=== PATIENT | female | born 1960 | race Caucasian/White ===

== ENCOUNTER 2019-09-15 15:01 | Inpatient (IN) | payer BC, MEDICAID ==
[2019-09-15 18:06] LABS: Glucose,Whole Blood 180 mg/dL (75-99)
[2019-09-15] MEDS ORDERED: ACETAMINOPHEN TAB 325 MG TAB PO PRN (19:33)
[2019-09-15 19:43] LABS: Basophils % (A) 0 %; Eosinophils % (A) 0 %; HCT 45.5 % (34.0-46.0); HGB 14.7 gm/dL (11.4-16.0); Lymphocytes # (A) 1.1 k/uL (1.0-4.8); Lymphocytes % (A) 10 %; MCH 28.3 pg (25.0-35.0); MCHC 32.4 g/dL (31.0-37.0); MCV 87.2 fL (80.0-100.0); Mean Platelet Volume 7.7; Monocytes # (A) 0.1 k/uL (0-1.0); Monocytes % (A) 1 %; Neutrophils % (A) 88 %; Platelet Count 276 k/uL (150-450); RBC 5.21 m/uL (3.80-5.40); RDW 13.4 % (11.5-15.5); WBC 10.3 k/uL (3.8-10.6)
[2019-09-15 20:00] LABS: ALT 60 U/L (4-34); AST 43 U/L (14-36); African American GFR (CKD) >90 (>60 ml/min/1.73 sqM); Albumin 4.7 g/dL (3.5-5.0); Alkaline Phosphatase 159 U/L (38-126); Anion Gap 12 mmol/L; Blood Urea Nitrogen 18 mg/dL (7-17); Calcium 9.6 mg/dL (8.4-10.2); Carbon Dioxide 25 mmol/L (22-30); Chloride 97 mmol/L (98-107); Creatine Kinase 132 U/L (30-135); Glucose 196 mg/dL (74-99); LDH 466 U/L (313-618); Non-African American GFR(CKD) >90 (>60 ml/min/1.73 sqM); Potassium 4.3 mmol/L (3.5-5.1); Sodium 134 mmol/L (137-145); Total Bilirubin 0.4 mg/dL (0.2-1.3); Total Protein 7.9 g/dL (6.3-8.2)
[2019-09-15 20:02] LABS: Glucose,Whole Blood 200 mg/dL (75-99)
[2019-09-15 20:09] LABS: D-Dimer 0.53 mg/L FEU (<0.60); Partial Thromboplastin Time 23.6 sec (22.0-30.0); Prothrombin Time 10.4 sec (9.0-12.0)
[2019-09-15] MEDS: MONTELUKAST 10 MG TAB PO SCH (20:12)
[2019-09-15] MEDS: traZODone HCL 50 MG TAB PO SCH (20:12)
[2019-09-15] MEDS: PRAVASTATIN SODIUM 40 MG TAB PO SCH (20:12)
[2019-09-15] MEDS: ASPIRIN 81 MG PO SCH (20:12)
[2019-09-15] MEDS: INSULIN ASPART (NovoLOG) 100 UNIT/ML VIAL SQ SCH (20:13)
[2019-09-15] MEDS: ONDANSETRON 4 MG/2 ML VIAL IVP PRN (20:20)
--- NOTE | 2019-09-16 01:08 | P.HPIM ---
History of Present Illness H&P Date: 09/15/19 Chief Complaint: cough , SOB I was wearing full PPE during this encounter including N95 mask, face shield, double gloves, gown, and head cover. patient had a surgical mask on during my entire interview. i maintained 6 feet distance with the patient who verbalized understanding about these precautionary measures. except for during my physical exam where i had to be close to the patient. 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 She has been having symptoms since the weekend of worsening coughing and shortness of breath. She normally doesn't get any asthma exacerbations however she noticed that she's getting wheezy at home requiring frequent breathing treatment with rescue inhaler for which patient went to the hospital for evaluation she was tested for Covid 19. Patient reports symptoms of headache loss of smell and taste sensation generalized body aches and pleuritic chest pain with coughing. She admits to wheezing at home. Otherwise denies any fevers or chills denies any nausea vomiting or diarrhea. Patient is frequently coughing mainly dry cough. Patient otherwise denies any sick contact or recent traveling she has observing social distancing and self-isolation home when she is not working. Her has prostate cancer and he is currently asymptomatic. Patient blood work reviewed and is unremarkable. In addition has non of the known typical picture that we see with Covid 19 Chest x-ray showed some bilateral infiltrates which was done at another [facility] facility. Currently patient is coughing, however denies any respiratory distress she is on 2 L nasal cannula and oxygen saturations 99%. Patient kept in contact and droplet precautions until Covid 19 results are back Review of Systems Pertinent positives as noted in HPI. All other systems were reviewed and are negative Past Medical History Past Medical History: Asthma, Diabetes Mellitus, Hypertension, Myocardial Infarction ([place]) Last Myocardial Infarction Date:: 2009 History of Any Multi-Drug Resistant Organisms: None Reported Past Surgical History: Cholecystectomy, Heart Catheterization Past Anesthesia/Blood Transfusion Reactions: No Reported Reaction Past Psychological History: Depression Smoking Status: Former smoker - Past Family History Family Family Medical History: Coronary Artery Disease (CAD) Additional Family Medical History / Comment(s): with prostate cancer Medications and Allergies Home Medications Medication Instructions Recorded Confirmed Type Aspirin EC [Ecotrin Low Dose] 81 mg PO Q48H 09/15/19 09/15/19 History Calcium/Vitamin D3(Unknown Dose) 1 tab PO BID 09/15/19 09/15/19 History Cholecalciferol [Vitamin D3 (25 1,000 unit PO DAILY 09/15/19 09/15/19 History Mcg = 1000 Iu)] Lisinopril [Zestril] 2.5 mg PO DAILY 09/15/19 09/15/19 History Metoprolol Succinate (ER) [Toprol 50 mg PO DAILY 09/15/19 09/15/19 History Xl] Montelukast [Singulair] 10 mg PO HS 09/15/19 09/15/19 History Multivitamins, Thera [Multivitamin 1 tab PO DAILY 09/15/19 09/15/19 History (formulary)] Nitroglycerin Sl Tabs [Nitrostat] 0.4 mg SUBLINGUAL Q5M PRN 09/15/19 09/15/19 History Polyethylene Glycol 3350 [Miralax] 17 gm PO DAILY 09/15/19 09/15/19 History Pravastatin Sodium [Pravachol] 40 mg PO HS 09/15/19 09/15/19 History SUMAtriptan SUCCINATE [Imitrex] 100 mg PO BID PRN 09/15/19 09/15/19 History Venlafaxine HCl [Effexor XR] 150 mg PO DAILY 09/15/19 09/15/19 History metFORMIN HCL [Glucophage] 1,000 mg PO BID 09/15/19 09/15/19 History traZODone HCL 50 mg PO HS 09/15/19 09/15/19 History Allergies Allergy/AdvReac Type Severity Reaction Status Date / Time cephalexin [From Keflex] Allergy Itching Verified 09/15/19 18:20 Sulfa (Sulfonamide Allergy Itching Verified 09/15/19 18:20 Antibiotics) codeine AdvReac PASSED OUT Verified 09/15/19 18:20 Physical Exam Vitals: Vital Signs Temp Pulse Resp BP Pulse Ox 09/15/19 17:51 97.9 F 79 18 135/85 99 Intake and Output 09/15/19 09/15/19 09/15/19 06:59 14:59 22:59 Other: Weight 101.605 kg Constitutional: No acute distress, conversant, pleasant, on 2 L nasal cannula Eyes: Anicteric sclerae, moist conjunctiva, Pupils equal round reactive to light ENMT: NC/AT Oropharynx was not examined due to possible coated infection to minimize risk of spread of the disease Neck: Supple, FROM, no masses, or JVD Lungs: Clear to auscultation, no wheezing rhonchi or rales Clear to percussion Normal respiratory effort, no accessory muscle use Cardiovascular: Heart regular in rate and rhythm, No murmurs, gallops, or rubs No peripheral edema Abdominal: Soft Nontender, no guarding, rebound or rigidity Abdomen moving with respiration Normoactive bowel sounds No hepatomegaly, No splenomegaly No palpable mass No abdominal wall hernia noted Skin: Normal temperature, tone, texture, turgor No induration No subcutaneous nodules No rash, lesions No ulcers Extremities: No digital cyanosis No clubbing Pedal pulses intact and symmetrical Radial pulses intact and symmetrical No calf tenderness Psychiatric: Alert and oriented to person, place and time Appropriate affect fair judgement Neuro Muscles Strength 5/5 in all 4 extremities Sensation to light touch grossly present throughout Cranial nerves II-XII grossly intact No focal sensory deficits Lymphatics: no palpable cervical or supraclavicular , or inguinal lymph nodes Results CBC & Chem 7: 09/15/19 19:22 09/15/19 19:22 Labs: Abnormal Lab Results - Last 24 Hours (Table) 09/15/19 Range/Units 18:01 POC Glucose (mg/dL) 180 H (75-99) mg/dL Thrombosis Risk Factor Assmnt - Choose All That Apply Each Factor Represents 1 point: Age 41-60 years Thrombosis Risk Factor Assessment Total Risk Factor Score: 1 Thrombosis Risk Factor Assessment Level: Low Risk Assessment and Plan Assessment: 59-year-old female with hypertension controlled with medications, diabetes mellitus on metformin, mild intermittent asthma, history of CAD pain years ago Patient was transferred from another [facility] to us under the [facility] load program Patient admitted for acute asthma exacerbation with possible underlying covid 19 infection anticipated length of stay more than 2 midnights Acute asthma excessive urination with possible underlying viral pneumonia Atypical pneumonia viral versus bacterial Diabetes mellitus Hypertension History of Mild intermittent asthma History of CAD 10 years ago Plan Supplemental oxygen as needed keep oxygen saturation above 92% Blood work reviewed unremarkable. Also lacks the typical picture that we see with Covid 19 infections. Covid 19 testing pending Oral prednisone for acute asthma exacerbation Albuterol inhaler every 2 hours when necessary Start patient on doxycycline for anti-inflammatory and possible underlying atypical pneumonia Supportive care Insulin sliding scale for diabetes Resume home medications Symptomatic control of coughing Check lactic acid. Lactic acid was reported to be at 3.9 at the other facility patient received IV fluids at the original hospital before transfer Monitor vital signs CODE STATUS: Full code DVT prophylaxis: Heparin subcu 3 times a day Discussed with: Patient, ER, RN Anticipated length of stay more than [address]: Home A total of 60 minutes was spent on the care of this complex patient more than 50% of the time was spent in counseling and care coordination.
[2019-09-16 01:13] LABS: Ferritin 143.8 ng/mL (10.0-291.0)
[2019-09-16] MEDS: DOXYCYCLINE 100 MG CAP PO SCH ×3 (01:52→21:01)
[2019-09-16] MEDS ORDERED: HYDROXYCHLOROQUINE SULFATE 200 MG TAB PO ONE (02:00)
[2019-09-16] MEDS: SUMAtriptan SUCCINATE 50 MG TAB PO PRN ×2 (05:54→16:10)
[2019-09-16 06:47] LABS: Glucose,Whole Blood 132 mg/dL (75-99)
[2019-09-16] MEDS: ONDANSETRON 4 MG/2 ML VIAL IVP PRN ×2 (07:13→14:52)
[2019-09-16] MEDS: HEPARIN SODIUM,PORCINE 5,000 UNIT/ML 1 ML VIAL SQ SCH ×3 (07:35→23:47)
[2019-09-16] MEDS: VENLAFAXINE HCL ER 150 MG CAP PO SCH (07:35)
[2019-09-16] MEDS: predniSONE 20 MG TAB PO SCH (07:35)
[2019-09-16] MEDS: INSULIN ASPART (NovoLOG) 100 UNIT/ML VIAL SQ SCH ×4 (07:35→21:01)
[2019-09-16] MEDS: METOPROLOL SUCCINATE (ER) 50 MG TAB.ER.24H PO SCH (07:35)
[2019-09-16] MEDS: LISINOPRIL 2.5 MG TAB PO SCH (07:35)
[2019-09-16] MEDS: HYDROXYCHLOROQUINE SULFATE 200 MG TAB PO SCH ×2 (09:03→21:24)
[2019-09-16] MEDS: ALBUTEROL HFA INHALER INHALATION PRN ×2 (09:33→20:50)
[2019-09-16] MEDS: SYMBICORT 160-4.5 MCG INHALER INHALATION SCH ×2 (09:33→20:50)
--- NOTE | 2019-09-16 10:55 | XR ---
EXAMINATION TYPE: XR chest 1V portable DATE OF EXAM: 09/16/2019 COMPARISON: Outside imaging dated 09/15/2019 HISTORY: Follow-up for pneumonia TECHNIQUE: Single frontal view of the chest is obtained. FINDINGS: There is no focal air space opacity, pleural effusion, or pneumothorax seen. The cardiac silhouette size is within normal limits. The osseous structures are intact. IMPRESSION: No acute cardiopulmonary process.
[2019-09-16 11:14] LABS: Glucose,Whole Blood 197 mg/dL (75-99)
[2019-09-16] MEDS: BENZOCAINE/MENTHOL LOZENG 1 EACH LOZENGE MUCOUS MEM PRN ×2 (11:55→16:11)
[2019-09-16] MEDS: BENZONATATE 100 MG CAP PO PRN ×2 (11:59→21:24)
[2019-09-16 14:12] LABS: Hemoglobin A1C 6.7 % (4.0-6.0)
--- NOTE | 2019-09-16 15:35 | P.PN ---
Subjective Progress Note Date: 09/16/19 (Delayed charting seen at 10 AM) Principal diagnosis: shortness of breath Patient is a 59-year-old female with a past medical history of diabetes mellitus type 2, asthma well controlled on Singulair only, hypertension, and prior myocardial infarction who initially presented to [facility] emergency department. She was transferred here as part of the coving 19 relief efforts. She underwent an extensive evaluation at the ER there. Her chest x-ray showed some bilateral infiltrates, labs were relatively unremarkable and did not have the typical laboratory criterial for covid 19. She received 1 dose of Plaquenil outside facility. She was subsequently started on Doxy and her Plaquenil was continued. She was also started on albuterol and prednisone for possible asthma exacerbation. Infectious disease was consulted. Repeat chest x-ray here showed no acute process. Patient seen and examined at bedside. She is complaining of significant shortness of breath. She is having some chest discomfort secondary to coughing. She reports some nausea mostly with changes in position, no dizziness, no diarrhea, no vomiting. She also reports loss of taste and smell. I have discussed with her about the fact that her blood work is not consistent with what we're typically seen with coving 19, but we will await testing and that she may have a simple URI or bronchitis. Objective - Vital Signs Vital signs: Vital Signs Temp 98.3 F 09/16/19 11:00 Pulse 63 09/16/19 11:00 Resp 19 09/16/19 11:00 BP 123/79 09/16/19 11:00 Pulse Ox 98 09/16/19 11:00 Intake & Output 09/15/19 09/16/19 09/16/19 18:59 06:59 18:59 Intake Total 100 Output Total 1 Balance 99 Weight 101.605 kg Intake: Oral 100 Output: Urine 1 - Exam General: Ill appearing, mild distress, appears at stated age Derm: warm, dry Head: atraumatic, normocephalic, symmetric Eyes: EOMI, no lid lag, anicteric sclera Mouth: no lip lesion, mucus membranes moist Cardiovascular: S1S2 reg, no murmur, positive posterior tibial pulse bilateral, Lungs: Decreased breath sounds bilateral, no wheezing noted, no rhonchi, no rales , no accessory muscle use, 3 word conversational dyspnea Abdominal: soft, nontender to palpation, no guarding, no appreciable organomegaly Ext: no gross muscle atrophy, no edema, no contractures Neuro: CN II-XI grossly intact, no focal neuro deficits Psych: Alert, oriented, appropriate affect - Labs CBC & Chem 7: 09/15/19 19:22 09/15/19 19:22 Labs: Abnormal Lab Results - Last 24 Hours (Table) 09/15/19 09/15/19 09/15/19 Range/Units 18:01 19:22 19:22 Neutrophils # 9.0 H (1.3-7.7) k/uL Sodium 134 L (137-145) mmol/L Chloride 97 L (98-107) mmol/L BUN 18 H (7-17) mg/dL Glucose 196 H (74-99) mg/dL POC Glucose (mg/dL) 180 H (75-99) mg/dL Hemoglobin A1c (4.0-6.0) % AST 43 H (14-36) U/L ALT 60 H (4-34) U/L Alkaline Phosphatase 159 H (38-126) U/L 09/15/19 09/15/19 09/16/19 Range/Units 19:22 20:00 06:46 Neutrophils # (1.3-7.7) k/uL Sodium (137-145) mmol/L Chloride (98-107) mmol/L BUN (7-17) mg/dL Glucose (74-99) mg/dL POC Glucose (mg/dL) 200 H 132 H (75-99) mg/dL Hemoglobin A1c 6.7 H (4.0-6.0) % AST (14-36) U/L ALT (4-34) U/L Alkaline Phosphatase (38-126) U/L 09/16/19 Range/Units 11:13 Neutrophils # (1.3-7.7) k/uL Sodium (137-145) mmol/L Chloride (98-107) mmol/L BUN (7-17) mg/dL Glucose (74-99) mg/dL POC Glucose (mg/dL) 197 H (75-99) mg/dL Hemoglobin A1c (4.0-6.0) % AST (14-36) U/L ALT (4-34) U/L Alkaline Phosphatase (38-126) U/L Assessment and Plan Assessment: Upper respiratory tract infection, possible Covid 19 complicated by acute exacerbation of asthma -Await testing -Prednisone, albuterol as needed, Symbicort -Pulmonary hygiene -LDH normal, CK normal, troponin normal, BNP 80, CRP is 8 - Afebril Diabetes mellitus type 2 with hyperglycemia -Metformin on hold -Sliding-scale insulin -Follow blood sugars -A1c 6.7 Morbid obesity with BMI 42.3 -Structured outpatient weight loss Transaminitis -Mild -Further outpatient evaluation -Follow in light of possible Covid 19 Coronary artery disease -Lisinopril, metoprolol, statin, aspirin Chronic: Hypertension DVT prophylaxis: Heparin Discussed with: Patient, nursing Anticipated discharge: 1-[address]: home A total of 35 minutes was spent on the care of this complex patient more than 50% of the time was spent in counseling and care coordination.
[2019-09-16 16:28] LABS: Glucose,Whole Blood 197 mg/dL (75-99)
[2019-09-16 20:51] LABS: Glucose,Whole Blood 133 mg/dL (75-99)
[2019-09-16] MEDS: PRAVASTATIN SODIUM 40 MG TAB PO SCH (21:01)
[2019-09-16] MEDS: MONTELUKAST 10 MG TAB PO SCH (21:01)
[2019-09-16] MEDS: traZODone HCL 50 MG TAB PO SCH (21:24)
[2019-09-17 06:50] LABS: Glucose,Whole Blood 104 mg/dL (75-99)
[2019-09-17] MEDS: INSULIN ASPART (NovoLOG) 100 UNIT/ML VIAL SQ SCH ×4 (08:12→21:58)
[2019-09-17] MEDS: HEPARIN SODIUM,PORCINE 5,000 UNIT/ML 1 ML VIAL SQ SCH ×3 (08:22→22:24)
[2019-09-17] MEDS: HYDROXYCHLOROQUINE SULFATE 200 MG TAB PO SCH ×2 (08:22→22:11)
[2019-09-17] MEDS: LISINOPRIL 2.5 MG TAB PO SCH (08:22)
[2019-09-17] MEDS: METOPROLOL SUCCINATE (ER) 50 MG TAB.ER.24H PO SCH (08:23)
[2019-09-17] MEDS: predniSONE 20 MG TAB PO SCH (08:23)
[2019-09-17] MEDS: VENLAFAXINE HCL ER 150 MG CAP PO SCH (08:23)
[2019-09-17] MEDS: DOXYCYCLINE 100 MG CAP PO SCH ×2 (08:23→22:09)
[2019-09-17 08:35] LABS: Basophils % (A) 0 %; Eosinophils # (A) 0.1 k/uL (0-0.7); Eosinophils % (A) 1 %; HCT 41.8 % (34.0-46.0); HGB 13.9 gm/dL (11.4-16.0); Lymphocytes # (A) 4.6 k/uL (1.0-4.8); Lymphocytes % (A) 35 %; MCH 28.8 pg (25.0-35.0); MCHC 33.2 g/dL (31.0-37.0); MCV 86.8 fL (80.0-100.0); Mean Platelet Volume 7.9; Monocytes # (A) 0.7 k/uL (0-1.0); Monocytes % (A) 5 %; Neutrophils # (A) 7.5 k/uL (1.3-7.7); Neutrophils % (A) 56 %; Platelet Count 293 k/uL (150-450); RBC 4.81 m/uL (3.80-5.40); RDW 13.6 % (11.5-15.5); WBC 13.3 k/uL (3.8-10.6)
[2019-09-17] MEDS: SYMBICORT 160-4.5 MCG INHALER INHALATION SCH ×2 (08:45→19:30)
[2019-09-17] MEDS: ALBUTEROL HFA INHALER INHALATION PRN ×4 (08:46→19:30)
[2019-09-17 09:13] LABS: ALT 41 U/L (4-34); AST 28 U/L (14-36); African American GFR (CKD) >90 (>60 ml/min/1.73 sqM); Albumin 4.1 g/dL (3.5-5.0); Alkaline Phosphatase 136 U/L (38-126); Anion Gap 10 mmol/L; Blood Urea Nitrogen 18 mg/dL (7-17); C Reactive Protein <5.0 mg/L (<10.0); Calcium 9.5 mg/dL (8.4-10.2); Carbon Dioxide 26 mmol/L (22-30); Chloride 102 mmol/L (98-107); Creatine Kinase 231 U/L (30-135); Glucose 113 mg/dL (74-99); LDH 430 U/L (313-618); Non-African American GFR(CKD) >90 (>60 ml/min/1.73 sqM); Sodium 138 mmol/L (137-145); Total Bilirubin 0.3 mg/dL (0.2-1.3); Total Protein 7.2 g/dL (6.3-8.2)
--- NOTE | 2019-09-17 09:25 | P.CONS ---
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 presented to an altered facility with increasing shortness of breath and cough that been getting worse for the last few days patient did have history of asthma exacerbation patient started having wheezing and did use her inhalers without any improvement subsequently patient went to the outside facility for further testing patient also complaining of some headache and generalized body aches but main symptom has been increasing shortness of breath and wheezing she did have a cough which has been mild to moderate intensity not bringing up any sputum denies high-grade fever patient apparently did have a fever while on transfer from the outside facility to us but no fever has been recorded here patient did not have any lymphopenia LDH CRP has been no mild chest x-ray was done this morning which was negative for acute cardiopulmonary process interestingly has been consulted splint with concern for possible COVID- 19 infection Review of Systems Positive point has been mentioned in HPI rest of the systems are negative Past Medical History Past Medical History: Asthma, Diabetes Mellitus, Hypertension, Myocardial Infarction ([place]) Last Myocardial Infarction Date:: 2009 History of Any Multi-Drug Resistant Organisms: None Reported Past Surgical History: Cholecystectomy, Heart Catheterization Past Anesthesia/Blood Transfusion Reactions: No Reported Reaction Past Psychological History: Depression Smoking Status: Former smoker - Past Family History Family Family Medical History: Coronary Artery Disease (CAD) Additional Family Medical History / Comment(s): with prostate cancer Medications and Allergies Home Medications Medication Instructions Recorded Confirmed Type Aspirin EC [Ecotrin Low Dose] 81 mg PO Q48H 09/15/19 09/15/19 History Calcium/Vitamin D3(Unknown Dose) 1 tab PO BID 09/15/19 09/15/19 History Cholecalciferol [Vitamin D3 (25 1,000 unit PO DAILY 09/15/19 09/15/19 History Mcg = 1000 Iu)] Lisinopril [Zestril] 2.5 mg PO DAILY 09/15/19 09/15/19 History Metoprolol Succinate (ER) [Toprol 50 mg PO DAILY 09/15/19 09/15/19 History Xl] Montelukast [Singulair] 10 mg PO HS 09/15/19 09/15/19 History Multivitamins, Thera [Multivitamin 1 tab PO DAILY 09/15/19 09/15/19 History (formulary)] Nitroglycerin Sl Tabs [Nitrostat] 0.4 mg SUBLINGUAL Q5M PRN 09/15/19 09/15/19 History Polyethylene Glycol 3350 [Miralax] 17 gm PO DAILY 09/15/19 09/15/19 History Pravastatin Sodium [Pravachol] 40 mg PO HS 09/15/19 09/15/19 History SUMAtriptan SUCCINATE [Imitrex] 100 mg PO BID PRN 09/15/19 09/15/19 History Venlafaxine HCl [Effexor XR] 150 mg PO DAILY 09/15/19 09/15/19 History metFORMIN HCL [Glucophage] 1,000 mg PO BID 09/15/19 09/15/19 History traZODone HCL 50 mg PO HS 09/15/19 09/15/19 History Allergies Allergy/AdvReac Type Severity Reaction Status Date / Time cephalexin [From Keflex] Allergy Itching Verified 09/15/19 18:20 Sulfa (Sulfonamide Allergy Itching Verified 09/15/19 18:20 Antibiotics) codeine AdvReac PASSED OUT Verified 09/15/19 18:20 Physical Exam Vitals: Vital Signs Temp Pulse Pulse Resp BP Pulse Ox 09/16/19 19:26 97.8 F 62 14 124/84 98 09/16/19 15:07 97.6 F 59 L 18 100/65 98 09/16/19 11:00 98.3 F 63 19 123/79 98 09/16/19 07:43 58 L 17 09/16/19 07:00 99.0 F 58 L 17 133/82 97 09/16/19 06:00 98 09/16/19 03:25 98.2 F 63 14 106/69 97 09/16/19 01:55 99 09/15/19 22:57 97.4 F L 74 14 107/69 98 Intake and Output 09/16/19 09/16/19 09/16/19 06:59 14:59 22:59 Output Total 1 Balance -1 Output: Urine 1 Other: # Voids 2 GENERAL DESCRIPTION: Middle-aged female lying in bed, no distress. No tachypnea or accessory muscle of respiration use. HEENT: Shows Pallor , no scleral icterus. Oral mucous membrane is dry. NECK: Trachea central, no thyromegaly. LUNGS: Unlabored breathing. Occasional wheeze . HEART: S1, S2, regular rate and rhythm. ABDOMEN: Soft, no tenderness , guarding or rigidity EXTREMITIES: No edema of feet. SKIN: No rash, no masses palpable. NEUROLOGICAL: The patient is awake, alert, oriented x3, mood and affect normal. Results CBC & Chem 7: 09/17/19 07:52 09/17/19 07:52 Labs: Abnormal Lab Results - Last 24 Hours (Table) 09/15/19 09/16/19 09/16/19 Range/Units 19:22 06:46 11:13 POC Glucose (mg/dL) 132 H 197 H (75-99) mg/dL Hemoglobin A1c 6.7 H (4.0-6.0) % 09/16/19 09/16/19 Range/Units 16:27 20:50 POC Glucose (mg/dL) 197 H 133 H (75-99) mg/dL Hemoglobin A1c (4.0-6.0) % Microbiology - Last 24 Hours (Table) 09/15/19 19:22 Blood Culture - Preliminary Blood No Growth after 24 hours Assessment and Plan Assessment: patient presenting to the hospital with increasing shortness of breath and wheezing in this patient who did have a history of underlying asthma likely resenting acute asthma exacerbation in this patient currently with no fever no p ulmonary infiltrate her normal LDH and a CRP clinic suspicion low for underlying COVID-19 pneumonia (1) Suspected COVID-19 virus infection Current Visit: Yes Status: Acute Code(s): R68.89 - OTHER GENERAL SYMPTOMS AND SIGNS SNOMED Code(s): 780497383 Plan: 1-no need for Plaquenil at this point 2-steroids and bronchodilator for underlying Asthma exacerbation We will follow on clinical condition and cultures to further adjust medication if needed Thank you for this consultation we will follow the patient along with you Time with Patient: Greater than 30
[2019-09-17 11:30] LABS: Glucose,Whole Blood 135 mg/dL (75-99)
--- NOTE | 2019-09-17 13:51 | XR ---
EXAMINATION TYPE: XR chest 1V portable DATE OF EXAM: 09/17/2019 COMPARISON: 09/16/2019 INDICATION: Pneumonia TECHNIQUE: Single frontal view of the chest is obtained. FINDINGS: The heart size is normal. The pulmonary vasculature is normal. The lungs are clear. IMPRESSION: 1. No acute pulmonary process.
[2019-09-17 16:41] LABS: Glucose,Whole Blood 174 mg/dL (75-99)
--- NOTE | 2019-09-17 20:23 | P.PN ---
Subjective Progress Note Date: 09/17/19 (delayed charting seen at 1100) Principal diagnosis: shortness of breath Patient is a 59-year-old female with a past medical history of diabetes mellitus type 2, asthma well controlled on Singulair only, hypertension, and prior myocardial infarction who initially presented to [facility] emergency department. She was transferred here as part of the coving 19 relief efforts. She underwent an extensive evaluation at the ER there. Her chest x-ray showed some bilateral infiltrates, labs were relatively unremarkable and did not have the typical laboratory criterial for covid 19. She received 1 dose of Plaquenil outside facility. She was subsequently started on Doxy and her Plaquenil was continued. She was also started on albuterol and prednisone for possible asthma exacerbation. Infectious disease was consulted. Repeat chest x-ray here showed no acute process. Patient seen and examined at bedside. Feeling better today. Cough is getting better. Still having some shortness of breath. No nausea, vomiting, diarrhea. Feeling very anxious. Objective - Vital Signs Vital signs: Vital Signs Temp 98.3 F 09/17/19 15:07 Pulse 61 09/17/19 15:07 Resp 18 09/17/19 15:07 BP 96/62 09/17/19 15:07 Pulse Ox 96 09/17/19 15:07 Intake & Output 09/17/19 09/17/19 09/18/19 06:59 18:59 06:59 Intake Total 50 1784 Balance 50 1784 Intake: Oral 50 1784 Other: # Voids 2 3 - Exam General: Ill appearing, no distress, appears at stated age Derm: warm, dry Head: atraumatic, normocephalic, symmetric Eyes: EOMI, no lid lag, anicteric sclera Mouth: no lip lesion, mucus membranes moist Cardiovascular: S1S2 reg, no murmur, positive posterior tibial pulse bilateral, Lungs: Clear to auscultation bilateral, no wheezing noted, no rhonchi, no rales , no accessory muscle use, Abdominal: soft, nontender to palpation, no guarding, no appreciable organomegaly Ext: no gross muscle atrophy, no edema, no contractures Neuro: CN II-XI grossly intact, no focal neuro deficits Psych: Alert, oriented, appropriate affect - Labs CBC & Chem 7: 09/17/19 07:52 09/17/19 07:52 Labs: Abnormal Lab Results - Last 24 Hours (Table) 09/16/19 09/17/19 09/17/19 Range/Units 20:50 06:47 07:52 WBC 13.3 H (3.8-10.6) k/uL BUN (7-17) mg/dL Glucose (74-99) mg/dL POC Glucose (mg/dL) 133 H 104 H (75-99) mg/dL ALT (4-34) U/L Alkaline Phosphatase (38-126) U/L Creatine Kinase (30-135) U/L 09/17/19 09/17/19 09/17/19 Range/Units 07:52 11:29 16:39 WBC (3.8-10.6) k/uL BUN 18 H (7-17) mg/dL Glucose 113 H (74-99) mg/dL POC Glucose (mg/dL) 135 H 174 H (75-99) mg/dL ALT 41 H (4-34) U/L Alkaline Phosphatase 136 H (38-126) U/L Creatine Kinase 231 H (30-135) U/L Microbiology - Last 24 Hours (Table) 09/15/19 19:22 Blood Culture - Preliminary Blood No Growth after 24 hours Assessment and Plan Assessment: Upper respiratory tract infection, possible Covid 19 complicated by acute exacerbation of asthma -Await testing -Prednisone, albuterol as needed, Symbicort -Pulmonary hygiene -LDH normal, CK normal, troponin normal, BNP 80, CRP is 8 - Afebrile Diabetes mellitus type 2 with hyperglycemia -Metformin on hold -Sliding-scale insulin -Follow blood sugars -A1c 6.7 Morbid obesity with BMI 42.3 -Structured outpatient weight loss Transaminitis, improving -Mild -Further outpatient evaluation -Follow in light of possible Covid 19 Coronary artery disease -Lisinopril, metoprolol, statin, aspirin Chronic: Hypertension DVT prophylaxis: Heparin Discussed with: Patient, nursing Anticipated discharge: in AM Anticipated discharge place: home A total of 25 minutes was spent on the care of this complex patient more than 50% of the time was spent in counseling and care coordination.
[2019-09-17 21:56] LABS: Glucose,Whole Blood 129 mg/dL (75-99)
[2019-09-17] MEDS: ASPIRIN 81 MG PO SCH (22:09)
[2019-09-17] MEDS: traZODone HCL 50 MG TAB PO SCH (22:11)
[2019-09-17] MEDS: MONTELUKAST 10 MG TAB PO SCH (22:11)
[2019-09-17] MEDS: PRAVASTATIN SODIUM 40 MG TAB PO SCH (22:12)
[2019-09-18 06:54] LABS: Glucose,Whole Blood 103 mg/dL (75-99)
[2019-09-18] MEDS: INSULIN ASPART (NovoLOG) 100 UNIT/ML VIAL SQ SCH ×2 (07:03→12:20)
[2019-09-18] MEDS: VENLAFAXINE HCL ER 150 MG CAP PO SCH (07:59)
[2019-09-18] MEDS: METOPROLOL SUCCINATE (ER) 50 MG TAB.ER.24H PO SCH (07:59)
[2019-09-18] MEDS: DOXYCYCLINE 100 MG CAP PO SCH (07:59)
[2019-09-18] MEDS: predniSONE 20 MG TAB PO SCH (07:59)
[2019-09-18] MEDS: LISINOPRIL 2.5 MG TAB PO SCH (07:59)
[2019-09-18] MEDS: HYDROXYCHLOROQUINE SULFATE 200 MG TAB PO SCH (07:59)
[2019-09-18] MEDS: HEPARIN SODIUM,PORCINE 5,000 UNIT/ML 1 ML VIAL SQ SCH (07:59)
[2019-09-18 08:18] VITALS: RESP 18
[2019-09-18] MEDS: ALBUTEROL HFA INHALER INHALATION PRN (08:47)
[2019-09-18] MEDS: SYMBICORT 160-4.5 MCG INHALER INHALATION SCH (08:47)
[2019-09-18 11:37] VITALS: BP 118/75; PULSE 61; TEMP 97.6
[2019-09-18 11:52] LABS: Glucose,Whole Blood 133 mg/dL (75-99)
--- NOTE | 2019-09-18 19:59 | P.DS ---
Providers Date of admission: 09/15/19 17:39 Expected date of discharge: 09/18/19 Attending physician: Peace Alonso DO Consults: 09/16/19 01:26 Consult Physician Routine Consulting Provider: Martina Lloyd Consult Reason/Comments: pending covid , atypicl pna, acute asthma Do you want consulting provider notified?: Yes Primary care physician: Stated None Hospital Course: Discharge Diagnosis: Upper respiratory tract infection, possible Covid 19 Diabetes mellitus type 2 with hyperglycemia Morbid obesity BMI 42.3 Transaminitis Coronary artery disease Hypertension Hospital Course: Patient is a 59-year-old female with a past medical history of diabetes mellitus type 2, asthma well controlled on Singulair only, hypertension, and prior myocardial infarction who initially presented to [facility] emergency department. She was transferred here as part of the coving 19 relief efforts. She underwent an extensive evaluation at the ER there. Her chest x-ray showed some bilateral infiltrates, labs were relatively unremarkable and did not have the typical laboratory criterial for covid 19. She received 1 dose of Plaquenil prior to arrival. She was subsequently started on Doxy and her Plaquenil was continued. She was also started on albuterol and prednisone for possible asthma exacerbation. Infectious disease was consulted. Repeat chest x-ray here showed no acute process. She continued to improve and was discharged home. Her COVID test was pending on discharge. She'll remain off of work until her COVID testing his back. She will complete 3 additional days of prednisone, her remaining 3 doses plaquenil, and 3 additional doses of doxycycline. She will continue to use albuterol inhaler as needed as well as Symbicort. She'll follow up with her primary care physician in 2-3 days. She was subsequently discharged home. She was given instructions to maintain quarantine until Covid 19 testing is back. Patient seen and examined at bedside. Feeling well. Breathing is better. No longer feels that she is wheezing. Cough is better. Vital signs reviewed and stable. General: non toxic, no distress, appears at stated age, obese Derm: warm, dry Head: atraumatic, normocephalic, symmetric Eyes: EOMI, no lid lag, anicteric sclera Mouth: no lip lesion, mucus membranes moist Cardiovascular: S1S2 reg, no murmur, positive posterior tibial pulse bilateral, Lungs: Decreased breath sounds bilateral, no rhonchi, no rales , no accessory muscle use Abdominal: soft, nontender to palpation, no guarding, no appreciable organomegaly Ext: no gross muscle atrophy, no edema, no contractures Neuro: CN II-XI grossly intact, no focal neuro deficits Psych: Alert, oriented, appropriate affect A total of 35 minutes of time were spent preparing this complex discharge summary . Patient Condition at Discharge: Stable Plan - Discharge Summary New Discharge Prescriptions: New Benzocaine/Menthol Lozeng [Cepacol lozenge] 1 each MUCOUS MEM Q4HR PRN lozenge PRN Reason: Cough predniSONE [Deltasone] 40 mg PO DAILY #6 tab Hydroxychloroquine Sulfate [Plaquenil] 200 mg PO BID #3 tab Budesonide-Formot 160-4.5 Mcg [Symbicort 160-4.5 Mcg Inhaler] 2 puff INHALATION RT-BID puff Albuterol Inhaler [Ventolin Hfa Inhaler] 2 puff INHALATION Q2HR PRN puff PRN Reason: Shortness Of Breath Or Wheezing Doxycycline [Vibramycin] 100 mg PO BID #4 cap Continue Polyethylene Glycol 3350 [Miralax] 17 gm PO DAILY SUMAtriptan SUCCINATE [Imitrex] 100 mg PO BID PRN PRN Reason: Migraine Headache Nitroglycerin Sl Tabs [Nitrostat] 0.4 mg SUBLINGUAL Q5M PRN PRN Reason: Chest Pain Metoprolol Succinate (ER) [Toprol XL] 50 mg PO DAILY Lisinopril [Zestril] 2.5 mg PO DAILY Cholecalciferol [Vitamin D3 (25 Mcg = 1000 Iu)] 1,000 unit PO DAILY Pravastatin Sodium [Pravachol] 40 mg PO HS Multivitamins, Thera [Multivitamin (formulary)] 1 tab PO DAILY Montelukast [Singulair] 10 mg PO HS Calcium/Vitamin D3(Unknown Dose) 1 tab PO BID Aspirin EC [Ecotrin Low Dose] 81 mg PO Q48H traZODone HCL 50 mg PO HS metFORMIN HCL [Glucophage] 1,000 mg PO BID Venlafaxine HCl [Effexor XR] 150 mg PO DAILY Discharge Medication List Aspirin EC [Ecotrin Low Dose] 81 mg PO Q48H 09/15/19 [History] Calcium/Vitamin D3(Unknown Dose) 1 tab PO BID 09/15/19 [History] Cholecalciferol [Vitamin D3 (25 Mcg = 1000 Iu)] 1,000 unit PO DAILY 09/15/19 [History] Lisinopril [Zestril] 2.5 mg PO DAILY 09/15/19 [History] Metoprolol Succinate (ER) [Toprol XL] 50 mg PO DAILY 09/15/19 [History] Montelukast [Singulair] 10 mg PO HS 09/15/19 [History] Multivitamins, Thera [Multivitamin (formulary)] 1 tab PO DAILY 09/15/19 [History] Nitroglycerin Sl Tabs [Nitrostat] 0.4 mg SUBLINGUAL Q5M PRN 09/15/19 [History] Polyethylene Glycol 3350 [Miralax] 17 gm PO DAILY 09/15/19 [History] Pravastatin Sodium [Pravachol] 40 mg PO HS 09/15/19 [History] SUMAtriptan SUCCINATE [Imitrex] 100 mg PO BID PRN 09/15/19 [History] Venlafaxine HCl [Effexor XR] 150 mg PO DAILY 09/15/19 [History] metFORMIN HCL [Glucophage] 1,000 mg PO BID 09/15/19 [History] traZODone HCL 50 mg PO HS 09/15/19 [History] Albuterol Inhaler [Ventolin Hfa Inhaler] 2 puff INHALATION Q2HR PRN puff 09/18/19 [Rx] Benzocaine/Menthol Lozeng [Cepacol lozenge] 1 each MUCOUS MEM Q4HR PRN lozenge 09/18/19 [Rx] Budesonide-Formot 160-4.5 Mcg [Symbicort 160-4.5 Mcg Inhaler] 2 puff INHALATION RT-BID puff 09/18/19 [Rx] Doxycycline [Vibramycin] 100 mg PO BID #4 cap 09/18/19 [Rx] Hydroxychloroquine Sulfate [Plaquenil] 200 mg PO BID #3 tab 09/18/19 [Rx] predniSONE [Deltasone] 40 mg PO DAILY #6 tab 09/18/19 [Rx] Activity/Diet/Wound Care/Special Instructions: Activity: as tolerated Diet: Diabetic heart healthy Special Instructions: Home Isolation until COVID results, while awaiting results please wear mask if less than 6 feet from patients. Discharge Disposition: HOME SELF-CARE
--- NOTE | 2019-09-24 09:38 | CDI ---
Documentation Clarification Form Date: 09/24/2019 08:52:49 AM From: Odalys Canales RN CCDS Admit Date: 09/15/2019 05:39:00 PM Patient Name: Hillary Quintero Visit Number: [id number] Discharge Date: 09/18/2019 01:38:00 PM ATTENTION: The Clinical Documentation Specialists (CDI) and [facility] Coding Staff appreciate your assistance in clarifying documentation. Please respond to the clarification below the line at the bottom and electronically sign. The CDI & [facility] Coding staff will review the response and follow-up if needed. Please note: Queries are made part of the Legal Health Record. If you have any questions, please contact the author of this message via ITS. Dr. Peace Alonso The patient was a transfer from [facility] the COVID-19 lab results are not available in the medical record. Upper respiratory tract infection, possible COVID 19 Is documented in the Discharge summary 09/17 59-year-old female presents to [facility] as a transfer from [facility] with worsening cough, shortness of breath and getting wheezy was tested for COVID-19. Medical history Asthma, DM, HTN, DE in 2009 Clinical Indicators 09/15 CXR No acute pulmonary process. 09/14 VSS: T:97.9 Axillary, P: 79, R 18, Sat 99% on 2L nasal cannula 09/14 Labs Neutrophils 9.0, Na 134, AST 43, ALT 60, Alk Phos 159, ID Consult: 09/15 Suspected COVID-19 virus infection. No need for Plaquenil at this point. Meds 09/14 Plaquenil one does at [facility] followed by 5 doses of 8. In order to capture the severity of condition, please clarify the COVID-19 status: COVID-19 confirmed Treated for COVID-19 COVID-19 ruled out Other, please specify Unable to determine (Last Form Revision: August 2019) COVID-19 ruled out SARAVANAND
== END 2019-09-18 13:38 | disposition home or self-care (01) | DRG 202 ==
LOC: 4SSUR 17:39
PROVIDERS: ADMIT Internal Medicine; ATTEND Internal Medicine
DX: J45.21 Mild intermittent asthma with (acute) exacerbation (principal); J96.01 Acute respiratory failure with hypoxia; Z68.41 Body mass index [BMI] 40.0-44.9, adult; I25.10 Atherosclerotic heart disease of native coronary artery without angina pectoris; I10 Essential (primary) hypertension; E66.01 Morbid (severe) obesity due to excess calories; F32.9 Major depressive disorder, single episode, unspecified; E11.65 Type 2 diabetes mellitus with hyperglycemia; Z20.828 Contact with and (suspected) exposure to other viral communicable diseases; I25.2 Old myocardial infarction; Z79.84 Long term (current) use of oral hypoglycemic drugs; Z79.899 Other long term (current) drug therapy; Z82.49 Family history of ischemic heart disease and other diseases of the circulatory system; Z87.891 Personal history of nicotine dependence; Z90.49 Acquired absence of other specified parts of digestive tract; Z98.890 Other specified postprocedural states; Z80.42 Family history of malignant neoplasm of prostate; Z88.1 Allergy status to other antibiotic agents; Z88.5 Allergy status to narcotic agent; Z88.2 Allergy status to sulfonamides
CPT/HCPCS: 71045; 80053; 82550; 82728; 83036; 83605; 83615; 83735; 83880; 84100; 84145; 84484; 85025; 85379; 85610; 85730; 86140; 87040; 87449; 93005; 94640